=== PATIENT | male | born 1965 | race Caucasian/White ===

== ENCOUNTER 2021-07-18 14:04 | Day surgery (SDC) | payer BC ==
[~2021-07-18] VITALS: Ht 198.1 cm; Wt 111.8 kg
[2021-07-18] MEDS ORDERED: ZOFRAN 4MG T4 MG/TAB PO (14:34)
[2021-07-18] MEDS ORDERED: PERCOCET 325 MG1 TA2 PO (14:35)
[2021-07-18 15:05] VITALS: BP 141/85; PULSE 73; TEMP 97.1
[2021-07-18 17:35] VITALS: BP 149/92; PULSE 76; TEMP 97.3
--- NOTE | 2021-07-18 17:35 | NUR ---
Patient arrived from PACU escorted by ROMERO Arora. Patient is alert and oriented x3. Patient states he needs to void. Vitals obatined prior to sitting up up and assisting him to bedside. The patient was able to void. Urine is blood tinged. Patient states there is pain with urination. RN educated the patient as to why it is uncomfortable, stating that we reccommend that he drinks plenty of water and rests at home. Per report: DR had trouble getting the stones out and there will be irratited; however he was successful. Side rails x2. Call murillo is at bedside.
--- NOTE | 2021-07-18 17:40 | NUR ---
Patient requested black coffee to drink.
[2021-07-18 17:50] VITALS: BP 148/91; PULSE 76
--- NOTE | 2021-07-18 17:50 | NUR ---
Patient is tolerating his black coffee well. Denies neusea. No vomiting. Requested buttered toast to eat. Will continue to monitor per intervals. His moved her car to the ED and was brought into the room.
[2021-07-18 18:05] VITALS: BP 136/90; PULSE 68
--- NOTE | 2021-07-18 18:05 | NUR ---
Patient is tolerating his toast well and expressed desire to be discharged. Vitals obtained.
[2021-07-18 18:09] VITALS: BP 142/92; PULSE 78
--- NOTE | 2021-07-18 18:25 | NUR ---
IV was discontined at this time. Catheter tip intact. Pressure dressing applied. Discharge instructions and educational material was reviewed at this time. The patient verbalized understanding and signed the related paperwork. DR has locked the discharge information packet and the RN is unable to print a packet that contains the signature page; so the RN copied the last page and had the patient sign and date it. Urology discharge instructions included as well. The patient denied needing assistance changing into his personal clothes.
--- NOTE | 2021-07-18 18:40 | NUR ---
The patient was escorted out to the ED entrence by ROMERO Eng via wheelchair. The patient was transferred into the care of his , who is present to drive. His has the discharge packet and related information. Both denied any further questions or concerns.
== END 2021-07-18 18:40 | disposition home or self-care (01) ==
LOC: SDCO 14:04
DX: N20.1 Calculus of ureter (principal); Z98.890 Other specified postprocedural states; Z98.52 Vasectomy status; Z79.899 Other long term (current) drug therapy; Z79.891 Long term (current) use of opiate analgesic
CPT/HCPCS: C1769; C2617; J0690; J1100; J1885; J2405; J2704; J3010; J7120; Q9967

== ENCOUNTER 2021-07-27 07:37 | Day surgery (SDC) | payer BC ==
[~2021-07-27] VITALS: Ht 198.1 cm; Wt 110.4 kg
[~2021-07-27 07:37] MED LIST: PERCOCET 325 MG1 TA2 PO; ZOFRAN 4MG T4 MG/TAB PO
[2021-07-27 08:10] VITALS: BP 126/75; PULSE 70; TEMP 98.2
[2021-07-27 11:15] VITALS: BP 153/94; PULSE 63; TEMP 98.2
--- NOTE | 2021-07-27 11:15 | NUR ---
Patient arrived back into [facility] from PACU. Report recieved from ROMERO Burciaga. Patient states he would like to use restroom. Able to void successfully. brought back into room from surgerical waiting room. states that Dr. Echols already spoke to her. Patient denies pain or nausea. Vital signs stable. Requesting water and toast.
[2021-07-27 11:30] VITALS: BP 137/89; PULSE 56
--- NOTE | 2021-07-27 11:30 | NUR ---
Patient continues to do well. Resting in bed. Denies pain or nausea. Tolerated food and drink well. at bedside. Call light within reach.
[2021-07-27 11:45] VITALS: BP 130/81; PULSE 60
--- NOTE | 2021-07-27 11:45 | NUR ---
Patient denies pain or nausea. States he feels like he is ready to go. at bedside. Went through discharge instructions with patient and . Verbalized understanding to education. Follow up appointment made and appointment card with patient folder. IV removed with no complications. Patient got dressed and patient was then escorted to patient entrance via wheelchair. along side. Patient got into personal vehicle unassisted and left in the care of his , Luis.
== END 2021-07-27 11:50 | disposition home or self-care (01) ==
LOC: SDCO 07:37
DX: N20.2 Calculus of kidney with calculus of ureter (principal); Z79.891 Long term (current) use of opiate analgesic; Z98.890 Other specified postprocedural states
CPT/HCPCS: C1769; J0690; J1100; J2405; J2704; J3010; J7120; Q9967